=== PATIENT | male | born 1950 | race Caucasian/White ===

== ENCOUNTER → 2021-12-20 | Outpatient (CLI) | payer MEDICARE ==
[~2021-12-20] MED LIST: BENZ100A PO; KATERZIA1 MG/1 ML; METO50; ZOCOR20 MG
[2021-12-20 12:38] LABS: BASOPHILS ABSOLUTE AUTO 0.08 K/mm3 (0.00-0.23); BASOPHILS PERCENT AUTO 1 % (0-2); EOSINOPHILS ABSOLUTE AUTO 0.21 K/mm3 (0.00-0.68); EOSINOPHILS PERCENT AUTO 3 % (0-6); Hematocrit 42.9 % (37.0-53.0); Hemoglobin 14.9 g/dL (13.5-17.5); IMMATURE GRAN ABSOLUTE AUTO 0.04 K/mm3 (0.00-0.10); IMMATURE GRAN PERCENT AUTO 1 % (0-1); LYMPHOCYTES ABSOLUTE AUTO 1.02 K/mm3 (0.84-5.20); LYMPHOCYTES PERCENT AUTO 14 % (21-46); MONOCYTES ABSOLUTE AUTO 0.64 K/mm3 (0.16-1.47); MONOCYTES PERCENT AUTO 9 % (4-13); Mean Corpuscular HGB 31.5 pg (26.0-34.0); Mean Corpuscular HGB Conc 34.7 g/dL (31.5-36.5); Mean Corpuscular Volume 91 fL (80-100); Mean Platelet Volume 10.5 fL (9.1-12.4); NEUTROPHILS PERCENT AUTO 74 % (41-73); Platelet Count 172 K/mm3 (150-400); RDW Coefficient Variation 13.5 % (11.7-14.2); RDW Standard Deviation 44.1 fL (35.1-46.3); Red Blood Cell Count 4.73 M/mm3 (4.30-5.90); White Blood Cell Count 7.49 K/mm3 (4.00-11.30)
[2021-12-20 12:49] LABS: Albumin, Blood 4.1 g/dL (3.4-5.0); Albumin/Globulin Ratio 1.1 (0.8-1.8); Bilirubin, Total 1.5 mg/dL (0.1-1.0); Bun/Creatinine Ratio 18.5 (12.0-20.0); Calcium, Blood 9.4 mg/dL (8.5-10.1); Creatinine, Blood 1.08 mg/dL (0.60-1.20); Globulin, Blood 3.9 g/dL (2.2-4.0)
== END | disposition home or self-care (01) ==
LOC: LAB 12:32 → LAB SHORT 12:32
PROVIDERS: Chiropractor
DX: R06.00 Dyspnea, unspecified (principal)
CPT/HCPCS: 80053; 84484; 85025; 85379

== ENCOUNTER 2021-12-28 13:30 | Inpatient (IN) | payer MEDICARE ==
[~2021-12-28] VITALS: Ht 170.2 cm; Wt 76.2 kg
[2021-12-28 14:23] LABS: BASOPHILS ABSOLUTE AUTO 0.09 K/mm3 (0.00-0.23); BASOPHILS PERCENT AUTO 1 % (0-2); EOSINOPHILS ABSOLUTE AUTO 0.06 K/mm3 (0.00-0.68); EOSINOPHILS PERCENT AUTO 1 % (0-6); Hematocrit 40.8 % (37.0-53.0); Hemoglobin 13.7 g/dL (13.5-17.5); IMMATURE GRAN ABSOLUTE AUTO 0.03 K/mm3 (0.00-0.10); IMMATURE GRAN PERCENT AUTO 0 % (0-1); LYMPHOCYTES ABSOLUTE AUTO 0.77 K/mm3 (0.84-5.20); LYMPHOCYTES PERCENT AUTO 7 % (21-46); MONOCYTES PERCENT AUTO 5 % (4-13); Mean Corpuscular HGB 30.6 pg (26.0-34.0); Mean Corpuscular HGB Conc 33.6 g/dL (31.5-36.5); Mean Corpuscular Volume 91 fL (80-100); Mean Platelet Volume 10.7 fL (9.1-12.4); NEUTROPHILS ABSOLUTE AUTO 9.64 K/mm3 (1.96-9.15); NEUTROPHILS PERCENT AUTO 86 % (41-73); Platelet Count 181 K/mm3 (150-400); RDW Standard Deviation 46.5 fL (35.1-46.3); Red Blood Cell Count 4.47 M/mm3 (4.30-5.90); White Blood Cell Count 11.19 K/mm3 (4.00-11.30)
[2021-12-28] MEDS ORDERED: METO50 (14:42)
[2021-12-28 14:43] LABS: Albumin, Blood 3.6 g/dL (3.4-5.0); Albumin/Globulin Ratio 0.9 (0.8-1.8); Bilirubin, Total 1.5 mg/dL (0.1-1.0); Calcium, Blood 9.1 mg/dL (8.5-10.1); Creatinine, Blood 0.96 mg/dL (0.60-1.20); Potassium, Blood 4.1 mmol/L (3.5-5.5); Total Protein, Blood 7.6 g/dL (6.4-8.2)
[2021-12-28] MEDS ORDERED: ZOCOR20 MG (14:46)
[2021-12-28] MEDS ORDERED: KATERZIA1 MG/1 ML (14:46)
[2021-12-28 14:56] LABS: International Normalized Ratio 1.03; Prothrombin Time Results 10.8 Sec (9.7-11.5)
[2021-12-28 17:09] LABS: Influenza A, PCR NEGATIVE (NEGATIVE); Influenza B, PCR NEGATIVE (NEGATIVE); Resp Syncytial Virus, PCR NEGATIVE (NEGATIVE); SARS-Cov-2 (COVID-19) PCR, MMC NEGATIVE (NEGATIVE)
[2021-12-28] MEDS ORDERED: BENZ100A PO (23:15)
--- NOTE | 2021-12-28 23:36 | NUR ---
PATIENT TRANSFERRED TO [facility] FLOOR VIA BED AT ABOUT 1900. PATIENT IS AOX4. TELEMETRY IN PLACE. O2 BEING DELIVERED @ 2 LITERS PER MINUTE VIA NASAL CANNULA. PATIENT IS DNI. ADMISSION ASSESSMENT/PROCESS COMPLETED. CALL LIGHT LEFT WITHIN REACH.
--- NOTE | 2021-12-29 05:04 | NUR ---
PATIENT IS ADMIT FROM ED FOR HYPERTROPHIC CARDIOMYOPATHY WITH INCREASING DYSPNEA. IMPROVED AFTER NASAL CANNULA WITH 2 LITERS OF OXYGEN PER MINUTE WAS APPLIED. ADMISSION INTAKE FORMS COMPLETED. AOX4 THROUGHOUT SHIFT. CLIENT SLEPT THROUGH MOST OF NIGHT. DECLINED LOVENOX WELL FLU SHOT. CALL LIGHT LEFT WITHIN REACH.
--- NOTE | 2021-12-29 13:14 | NUR ---
PT DISCHARGE AT 1235 WITH TO TRANSPORT. ALL PAPERWORK REVIEWED. NO DISTRESS NOTED AND PT DENIED SOB TODAY. PT INDEPENDENT IN ROOM AND AOX4. ALL PERSONAL BELONGING COLLECTED AND TAKEN WITH PT.
== END 2021-12-29 12:56 | disposition home or self-care (01) | DRG 291 ==
LOC: ER 13:30 → ERHOLD 17:43 → MEDS 19:09
PROVIDERS: Physician Assistant; Student in an Organized Health Care Education/Training Program; ADMIT Internal Medicine
DX: I11.0 Hypertensive heart disease with heart failure (principal); I50.31 Acute diastolic (congestive) heart failure; J96.01 Acute respiratory failure with hypoxia; I42.2 Other hypertrophic cardiomyopathy; Z20.822 Contact with and (suspected) exposure to COVID-19; Z28.21 Immunization not carried out because of patient refusal; E78.5 Hyperlipidemia, unspecified; I27.20 Pulmonary hypertension, unspecified; Z79.899 Other long term (current) drug therapy
CPT/HCPCS: 0241U; 36415; 71046; 71260; 80053; 83880; 84484; 85025; 85379; 85610; 93005; 93010; 96374-59; 99285-25; A9270; J1940; Q9967